=== PATIENT | male | born 1960 | race Caucasian/White ===

== ENCOUNTER 2023-05-15 16:26 | Inpatient (IN) | payer BC ==
[~2023-05-15] VITALS: Ht 165.1 cm; Wt 60.6 kg
[2023-05-15 18:28] LABS: BASOPHILS # (AUTO) 0.2 X10'3 (0-0.2); EOSINOPHILS % (AUTO) 0 % (0-6); HEMATOCRIT 45.8 % (42.0-52.0); HEMOGLOBIN 14.8 g/dl (14.0-17.9); LYMPHOCYTES # (AUTO) 1.2 X10'3 (1.1-4.8); LYMPHOCYTES % (AUTO) 5.4 % (21-51); MEAN CORPUSCULAR HEMOGLOBIN 32.6 PG (27.0-31.0); MEAN CORPUSCULAR HGB CONC 32.4 g/dL (33.0-36.5); MEAN CORPUSCULAR VOLUME 100.6 FL (78-98); MEAN PLATELET VOLUME 9.3 FL (7.4-10.4); MONOCYTES # (AUTO) 2.9 X10'3 (0-0.9); MONOCYTES % (AUTO) 13.2 % (2-12); NEUTROPHILS # (AUTO) 17.9 X10'3 (1.8-7.7); NEUTROPHILS % (AUTO) 80.4 % (42-75); PLATELET COUNT 261 X10'3 (140-440); RED BLOOD COUNT 4.55 X10'6 (4.70-6.10); WHITE BLOOD COUNT 22.2 X10'3 (4.5-11.0)
[2023-05-15 18:36] LABS: APTT 35 SECONDS (22-32); INR 1.1 INR; PROTHROMBIN TIME 11.3 SECONDS (9.0-12.0)
[2023-05-15] MEDS ORDERED: normal saline 1000ML IV soln IVB ONE (18:45)
[2023-05-15 18:49] LABS: ALANINE AMINOTRANSFERASE 20 U/L (12-78); ALBUMIN 3.2 G/DL (3.4-5.0); ALBUMIN/GLOBULIN RATIO 0.6 (1.1-1.5); ALKALINE PHOSPHATASE 117 IU/L (46-116); ANION GAP 30 (8-16); ASPARTATE AMINO TRANSFERASE 14 U/L (10-37); BILIRUBIN,TOTAL 0.6 MG/DL (0.1-1.0); BLOOD UREA NITROGEN 32 MG/DL (7-18); CALCIUM 9.8 MG/DL (8.5-10.1); CHLORIDE 90 MMOL/L (99-107); CREATININE 1.68 MG/DL (0.60-1.10); POTASSIUM 3.9 MMOL/L (3.5-5.1); PRO BRAIN NATRIURETIC PEPTIDE 267 PG/ML (0-125); SODIUM 129 MMOL/L (135-145); TOTAL PROTEIN 8.9 G/DL (6.4-8.2); eCRCL 39 ML/MIN; eGFR 41 ML/MIN
[2023-05-15 18:52] LABS: GLUCOSE 691 MG/DL (70-104)
[2023-05-15 19:04] LABS: ETHANOL < 10 MG/DL (<10)
[2023-05-15 19:32] LABS: PLATELET ESTIMATE NORMAL; TOTAL CELLS COUNTED 100
[2023-05-15 20:03] LABS: BILIRUBIN,URINE SMALL (Neg); CLARITY,URINE SLIGHTLY CLOUDY (Clear); COLOR,URINE STRAW (Yellow); GLUCOSE, URINE >=1000 mg/dl (Neg); KETONES,URINE >=80 mg/dl (Neg); LEUKOCYTE ESTERASE ,URINE NEGATIVE (Neg); NITRITES, URINE NEGATIVE (Neg); OCCULT BLOOD,URINE SMALL (Neg); PH,URINE 5.5 (4.8-8.0); PROTEIN,URINE 30 mg/dl (Neg); UROBILINOGEN,URINE 0.2 E.U/dL (0.2-1.0)
[2023-05-15 20:05] LABS: UA COLLECTION TYPE CLN CATCH MIDSTREAM
[2023-05-15 20:12] LABS: MUCUS STRANDS FEW /LPF (Neg); SQUAMOUS EPITHELIAL CELL,UR FEW /LPF (FEW)
[2023-05-15 20:14] LABS: AMORPHOUS URATES 2+; BACTERIA,URINE FEW /HPF (Neg); RBC,URINE 0-2 /HPF (0-2); WBC,URINE 0-4 /HPF (0-4)
[2023-05-15 20:15] LABS: HYALINE CASTS 0-3 /LPF (NEGATIVE)
[2023-05-15 20:20] LABS: URINE AMPHETAMINE SCREEN NEGATIVE (Neg); URINE BARBITUATE SCREEN NEGATIVE (Neg); URINE BENZODIAZEPINES SCREEN NEGATIVE (Neg); URINE CANNABINOID SCREEN NEGATIVE (Neg); URINE COCAINE SCREEN NEGATIVE (Neg); URINE METHADONE SCREEN NEGATIVE (Neg); URINE OPIATE SCREEN NEGATIVE (Neg); URINE PHENCYCLIDINE SCREEN NEGATIVE (Neg)
[2023-05-15] MEDS ORDERED: Insulin Reg/NS 100units/100mL 100 ML IV ONE (20:35)
[2023-05-15] MEDS ORDERED: sodium bicarbonate (8.4%) inj. 100 MEQ in dextrose 5% water 500ml 500 ML IV PRN ×2 (20:40→20:45)
[2023-05-15] MEDS ORDERED: sodium phosphate inj. 30 MMOL in dextrose 5%-water 250 ML IV PRN (20:40)
[2023-05-15] MEDS ORDERED: insulin regular, human U-100 3ml vial - multi-dose IV PRN ×3 (20:40→22:25)
[2023-05-15] MEDS ORDERED: sodium phosphate inj. 15 MMOL in dextrose 5%-water 250 ML IV PRN (20:40)
[2023-05-15] MEDS ORDERED: Insulin Reg/NS 100units/100mL 100 ML IV SCH ×3 (20:40→22:25)
[2023-05-15] MEDS ORDERED: potassium Cl 40MEQ/1/2NS 520ml 520 ML IV PRN ×6 (20:40→22:25)
[2023-05-15] MEDS ORDERED: potassium CL 20mEq in D5-1/2NS 1,000 ML IV PRN ×3 (20:40→22:25)
[2023-05-15] MEDS ORDERED: normal saline 1000ml 1,000 ML IV SCH ×4 (20:40→22:25)
[2023-05-15] MEDS ORDERED: potassium Cl 20 mEq SR tablet PO PRN ×8 (20:40→22:25)
[2023-05-15] MEDS ORDERED: sodium bicarbonate (8.4%) inj. 50 MEQ in dextrose 5% water 500ml 250 ML IV PRN ×2 (20:40→20:45)
[2023-05-15] MEDS ORDERED: Neutra Phos packet PO PRN (20:40)
[2023-05-15] MEDS: normal saline 1000ml 1,000 ML IV SCH ×2 (21:02→23:40)
[2023-05-15 21:52] LABS: ALBUMIN 2.8 G/DL (3.4-5.0); ANION GAP 31 (8-16); BLOOD UREA NITROGEN 28 MG/DL (7-18); BUN/CREATININE RATIO 19.6 (10.0-20.0); CALCIUM 9.1 MG/DL (8.5-10.1); CHLORIDE 97 MMOL/L (99-107); CREATININE 1.43 MG/DL (0.60-1.10); PHOSPHORUS 3.1 MG/DL (2.3-4.5); POTASSIUM 3.5 MMOL/L (3.5-5.1); SODIUM 135 MMOL/L (135-145); eCRCL 46 ML/MIN; eGFR 50 ML/MIN
[2023-05-15 22:05] LABS: GLUCOSE 514 MG/DL (70-104); TOTAL CARBON DIOXIDE 6.6 MMOL/L (24-32)
[2023-05-15] MEDS ORDERED: acetaminophen 325mg tablet PO PRN (22:20)
[2023-05-15] MEDS ORDERED: magnesium Cl slow-release 64mg tablet PO PRN (22:20)
[2023-05-15] MEDS ORDERED: magnesium 4gm in 100ml NS 100 ML IV PRN (22:20)
[2023-05-15] MEDS ORDERED: magnesium 2GM in 50ml NS 50 ML IV PRN (22:20)
[2023-05-15] MEDS ORDERED: mag hydrox/Alum hydrox/simeth 30ml oral suspension PO PRN (22:20)
[2023-05-15] MEDS ORDERED: magnesium hydroxide 30ml (MOM) UD suspension PO PRN (22:20)
[2023-05-15] MEDS ORDERED: CefTRIAXone/D5W-Rocephin 1gm 50 ML IV ONE (22:25)
[2023-05-15] MEDS: Insulin Reg/NS 100units/100mL 100 ML IV SCH (23:01)
[2023-05-15 23:05] LABS: ALBUMIN 2.8 G/DL (3.4-5.0); ANION GAP 29 (8-16); BLOOD UREA NITROGEN 27 MG/DL (7-18); BUN/CREATININE RATIO 19.7 (10.0-20.0); CALCIUM 8.9 MG/DL (8.5-10.1); CHLORIDE 100 MMOL/L (99-107); CREATININE 1.37 MG/DL (0.60-1.10); GLUCOSE 357 MG/DL (70-104); POTASSIUM 3.1 MMOL/L (3.5-5.1); SODIUM 137 MMOL/L (135-145); eCRCL 48 ML/MIN; eGFR 52 ML/MIN
[2023-05-15 23:40] VITALS: BP 122/82; PULSE 102; RESP 19; TEMP 98.4; O2SAT 98
[2023-05-16] VITALS (24 sets, daily range): BP systolic 94–128; BP diastolic 61–82; PULSE 96–130; RESP 16–31; TEMP 97.6–102.1; O2SAT 90–97
[2023-05-16] MEDS: normal saline 1000ml 1,000 ML IV SCH ×6 (00:26→23:53)
[2023-05-16] MEDS: potassium CL 20mEq in D5-1/2NS 1,000 ML IV PRN ×2 (01:29→14:45)
[2023-05-16] MEDS: potassium Cl 40MEQ/1/2NS 520ml 520 ML IV PRN ×6 (01:31→21:45)
[2023-05-16] MEDS ORDERED: diazepam inj 5 MG/ML inj. IV ONE (03:15)
[2023-05-16 03:17] LABS: BASOPHILS # (AUTO) 0.1 X10'3 (0-0.2); BASOPHILS % (AUTO) 0.9 % (0-1); EOSINOPHILS % (AUTO) 0.1 % (0-6); HEMATOCRIT 38.5 % (42.0-52.0); HEMOGLOBIN 12.8 g/dl (14.0-17.9); LYMPHOCYTES # (AUTO) 0.6 X10'3 (1.1-4.8); LYMPHOCYTES % (AUTO) 5.6 % (21-51); MEAN CORPUSCULAR HEMOGLOBIN 31.9 PG (27.0-31.0); MEAN CORPUSCULAR HGB CONC 33.3 g/dL (33.0-36.5); MEAN CORPUSCULAR VOLUME 95.8 FL (78-98); MEAN PLATELET VOLUME 8.8 FL (7.4-10.4); MONOCYTES # (AUTO) 0.8 X10'3 (0-0.9); MONOCYTES % (AUTO) 6.7 % (2-12); NEUTROPHILS % (AUTO) 86.7 % (42-75); PLATELET COUNT 222 X10'3 (140-440); RED BLOOD COUNT 4.02 X10'6 (4.70-6.10); RED CELL DISTRIBUTION WIDTH 12.7 % (11.5-14.5); WHITE BLOOD COUNT 11.5 X10'3 (4.5-11.0)
[2023-05-16 03:29] LABS: ALANINE AMINOTRANSFERASE 15 U/L (12-78); ALBUMIN 2.5 G/DL (3.4-5.0); ALBUMIN/GLOBULIN RATIO 0.6 (1.1-1.5); ALKALINE PHOSPHATASE 85 IU/L (46-116); ANION GAP 19 (8-16); ASPARTATE AMINO TRANSFERASE 14 U/L (10-37); BILIRUBIN,TOTAL 0.4 MG/DL (0.1-1.0); BLOOD UREA NITROGEN 24 MG/DL (7-18); BUN/CREATININE RATIO 19.4 (10.0-20.0); CALCIUM 8.6 MG/DL (8.5-10.1); CHLORIDE 106 MMOL/L (99-107); CREATININE 1.24 MG/DL (0.60-1.10); GLUCOSE 195 MG/DL (70-104); MAGNESIUM 1.7 MG/DL (1.5-2.4); SODIUM 137 MMOL/L (135-145); eCRCL 52 ML/MIN; eGFR 59 ML/MIN
[2023-05-16 03:45] LABS: PHOSPHORUS 0.9 MG/DL (2.3-4.5); POTASSIUM 2.5 MMOL/L (3.5-5.1); TOTAL CARBON DIOXIDE 12.2 MMOL/L (24-32)
[2023-05-16 04:44] LABS: PLATELET ESTIMATE NORMAL; TOTAL CELLS COUNTED 100
[2023-05-16 04:45] LABS: BURR CELLS 1+
[2023-05-16] MEDS ORDERED: sodium phosphate inj. 30 MMOL in dextrose 5%-water 250 ML IV PRN (07:10)
[2023-05-16] MEDS ORDERED: sodium phosphate inj. 15 MMOL in dextrose 5%-water 250 ML IV PRN (07:10)
[2023-05-16] MEDS: Insulin Reg/NS 100units/100mL 100 ML IV SCH (07:20)
[2023-05-16] MEDS: heparin, porcine 5000 units/ml vial SQ SCH ×2 (08:00→20:39)
[2023-05-16] MEDS: docusate sod 100mg capsule PO SCH ×2 (08:00→20:39)
[2023-05-16] MEDS: CefTRIAXone/D5W-Rocephin 1gm 50 ML IV SCH (08:00)
[2023-05-16] MEDS ORDERED: K and/or MAG REPLACEMENT MC SCH ×3 (08:00)
[2023-05-16] MEDS: K and/or MAG REPLACEMENT MC SCH ×2 (08:37→20:00)
[2023-05-16] MEDS ORDERED: ringers solution, lacted 1,000 ML IV ONE ×2 (08:50)
[2023-05-16] MEDS ORDERED: METF-438 PO (09:44)
[2023-05-16 11:05] LABS: ANION GAP 12 (8-16); BLOOD UREA NITROGEN 16 MG/DL (7-18); BUN/CREATININE RATIO 17.6 (10.0-20.0); CALCIUM 8.2 MG/DL (8.5-10.1); CHLORIDE 108 MMOL/L (99-107); CREATININE 0.91 MG/DL (0.60-1.10); GLUCOSE 157 MG/DL (70-104); SODIUM 138 MMOL/L (135-145); TOTAL CARBON DIOXIDE 17.9 MMOL/L (24-32); eCRCL 71 ML/MIN; eGFR 84 ML/MIN
[2023-05-16 11:06] LABS: POTASSIUM 2.5 MMOL/L (3.5-5.1)
[2023-05-16] MEDS: ondansetron/PF 4mg/2ml inj IV PRN (12:52)
[2023-05-16 17:08] LABS: ALANINE AMINOTRANSFERASE 21 U/L (12-78); ALBUMIN 1.7 G/DL (3.4-5.0); ALBUMIN/GLOBULIN RATIO 0.4 (1.1-1.5); ALKALINE PHOSPHATASE 68 IU/L (46-116); ANION GAP 10 (8-16); ASPARTATE AMINO TRANSFERASE 35 U/L (10-37); BILIRUBIN,TOTAL 0.2 MG/DL (0.1-1.0); BLOOD UREA NITROGEN 9 MG/DL (7-18); BUN/CREATININE RATIO 12.9 (10.0-20.0); CALCIUM 7.6 MG/DL (8.5-10.1); CHLORIDE 107 MMOL/L (99-107); GLUCOSE 106 MG/DL (70-104); SODIUM 137 MMOL/L (135-145); TOTAL CARBON DIOXIDE 19.7 MMOL/L (24-32); TOTAL PROTEIN 5.6 G/DL (6.4-8.2); eCRCL 93 ML/MIN; eGFR > 90 ML/MIN
[2023-05-16 17:19] LABS: POTASSIUM 2.4 MMOL/L (3.5-5.1)
[2023-05-16 18:39] LABS: PHOSPHORUS 1.7 MG/DL (2.3-4.5)
[2023-05-16] MEDS ORDERED: insulin glargine (Lantus) pen - multi-dose SQ SCH ×2 (21:00)
[2023-05-16 22:25] LABS: ALANINE AMINOTRANSFERASE 23 U/L (12-78); ALBUMIN 1.7 G/DL (3.4-5.0); ALBUMIN/GLOBULIN RATIO 0.4 (1.1-1.5); ALKALINE PHOSPHATASE 70 IU/L (46-116); ANION GAP 14 (8-16); ASPARTATE AMINO TRANSFERASE 33 U/L (10-37); BILIRUBIN,TOTAL 0.4 MG/DL (0.1-1.0); BLOOD UREA NITROGEN 10 MG/DL (7-18); BUN/CREATININE RATIO 14.5 (10.0-20.0); CALCIUM 7.6 MG/DL (8.5-10.1); CHLORIDE 103 MMOL/L (99-107); CREATININE 0.69 MG/DL (0.60-1.10); GLUCOSE 266 MG/DL (70-104); POTASSIUM 3.3 MMOL/L (3.5-5.1); SODIUM 133 MMOL/L (135-145); TOTAL CARBON DIOXIDE 15.6 MMOL/L (24-32); TOTAL PROTEIN 5.6 G/DL (6.4-8.2); eCRCL 94 ML/MIN; eGFR > 90 ML/MIN
[2023-05-17] VITALS (23 sets, daily range): BP systolic 102–144; BP diastolic 68–84; PULSE 82–98; RESP 18–29; TEMP 99.9–100.3; O2SAT 93–98
[2023-05-17 05:54] LABS: BASOPHILS # (AUTO) 0.1 X10'3 (0-0.2); BASOPHILS % (AUTO) 0.5 % (0-1); EOSINOPHILS % (AUTO) 0 % (0-6); HEMATOCRIT 39.1 % (42.0-52.0); HEMOGLOBIN 12.9 g/dl (14.0-17.9); LYMPHOCYTES # (AUTO) 0.9 X10'3 (1.1-4.8); LYMPHOCYTES % (AUTO) 5.7 % (21-51); MEAN CORPUSCULAR HEMOGLOBIN 31.8 PG (27.0-31.0); MEAN CORPUSCULAR VOLUME 96.4 FL (78-98); MEAN PLATELET VOLUME 9.5 FL (7.4-10.4); MONOCYTES # (AUTO) 1.4 X10'3 (0-0.9); MONOCYTES % (AUTO) 9.1 % (2-12); NEUTROPHILS # (AUTO) 12.8 X10'3 (1.8-7.7); NEUTROPHILS % (AUTO) 84.7 % (42-75); PLATELET COUNT 201 X10'3 (140-440); RED BLOOD COUNT 4.06 X10'6 (4.70-6.10); RED CELL DISTRIBUTION WIDTH 12.9 % (11.5-14.5); WHITE BLOOD COUNT 15.2 X10'3 (4.5-11.0)
[2023-05-17 06:10] LABS: ALANINE AMINOTRANSFERASE 21 U/L (12-78); ALBUMIN 1.7 G/DL (3.4-5.0); ALBUMIN/GLOBULIN RATIO 0.4 (1.1-1.5); ALKALINE PHOSPHATASE 77 IU/L (46-116); ANION GAP 21 (8-16); ASPARTATE AMINO TRANSFERASE 28 U/L (10-37); BILIRUBIN,TOTAL 0.5 MG/DL (0.1-1.0); BLOOD UREA NITROGEN 10 MG/DL (7-18); BUN/CREATININE RATIO 16.7 (10.0-20.0); CALCIUM 7.9 MG/DL (8.5-10.1); CHLORIDE 104 MMOL/L (99-107); GLUCOSE 254 MG/DL (70-104); MAGNESIUM 1.7 MG/DL (1.5-2.4); POTASSIUM 3.4 MMOL/L (3.5-5.1); SODIUM 137 MMOL/L (135-145); TOTAL PROTEIN 5.8 G/DL (6.4-8.2); eCRCL 108 ML/MIN; eGFR > 90 ML/MIN
[2023-05-17 06:17] LABS: TOTAL CARBON DIOXIDE 12.5 MMOL/L (24-32)
[2023-05-17] MEDS ORDERED: ringers solution, lactated 500ml IV solution IV ONE (06:40)
[2023-05-17] MEDS: Insulin Reg/NS 100units/100mL 100 ML IV SCH ×2 (07:25→15:15)
[2023-05-17] MEDS: K and/or MAG REPLACEMENT MC SCH ×2 (08:00→20:00)
[2023-05-17] MEDS: CefTRIAXone/D5W-Rocephin 1gm 50 ML IV SCH (09:08)
[2023-05-17] MEDS: heparin, porcine 5000 units/ml vial SQ SCH ×2 (09:08→20:57)
[2023-05-17 09:18] LABS: PHOSPHORUS 2.1 MG/DL (2.3-4.5)
[2023-05-17] MEDS: docusate sod 100mg capsule PO SCH ×2 (09:22→20:57)
[2023-05-17] MEDS ORDERED: sodium phosphate inj. 15 MMOL in dextrose 5%-water 250 ML IV PRN (09:55)
[2023-05-17] MEDS: pantoprazole 40MG/NS 100ML BAG 100 ML IV SCH (10:33)
[2023-05-17] MEDS: normal saline 1000ml 1,000 ML IV SCH ×2 (10:54→19:33)
[2023-05-17 11:31] LABS: ALANINE AMINOTRANSFERASE 20 U/L (12-78); ALBUMIN 1.7 G/DL (3.4-5.0); ALBUMIN/GLOBULIN RATIO 0.4 (1.1-1.5); ALKALINE PHOSPHATASE 74 IU/L (46-116); ANION GAP 17 (8-16); ASPARTATE AMINO TRANSFERASE 16 U/L (10-37); BILIRUBIN,TOTAL 0.5 MG/DL (0.1-1.0); BLOOD UREA NITROGEN 10 MG/DL (7-18); BUN/CREATININE RATIO 16.7 (10.0-20.0); CALCIUM 7.8 MG/DL (8.5-10.1); CHLORIDE 105 MMOL/L (99-107); GLUCOSE 208 MG/DL (70-104); SODIUM 138 MMOL/L (135-145); TOTAL CARBON DIOXIDE 16.1 MMOL/L (24-32); TOTAL PROTEIN 5.5 G/DL (6.4-8.2); eCRCL 108 ML/MIN; eGFR > 90 ML/MIN
[2023-05-17 11:33] LABS: POTASSIUM 2.7 MMOL/L (3.5-5.1)
[2023-05-17] MEDS: potassium Cl 40MEQ/1/2NS 520ml 520 ML IV PRN ×3 (12:03→23:05)
[2023-05-17] MEDS ORDERED: ringers solution, lacted 1,000 ML IV ONE (13:45)
[2023-05-17] MEDS: potassium Cl 20mEq in D5-NS 1,000 ML IV SCH ×3 (14:51→23:05)
[2023-05-17] MEDS: ondansetron/PF 4mg/2ml inj IV PRN (17:30)
[2023-05-17 17:41] LABS: ALANINE AMINOTRANSFERASE 18 U/L (12-78); ALBUMIN 1.4 G/DL (3.4-5.0); ALBUMIN/GLOBULIN RATIO 0.4 (1.1-1.5); ALKALINE PHOSPHATASE 60 IU/L (46-116); ANION GAP 9 (8-16); ASPARTATE AMINO TRANSFERASE 25 U/L (10-37); BILIRUBIN,TOTAL 0.4 MG/DL (0.1-1.0); BLOOD UREA NITROGEN 10 MG/DL (7-18); BUN/CREATININE RATIO 16.4 (10.0-20.0); CALCIUM 7.4 MG/DL (8.5-10.1); CHLORIDE 108 MMOL/L (99-107); CREATININE 0.61 MG/DL (0.60-1.10); GLUCOSE 266 MG/DL (70-104); POTASSIUM 3.4 MMOL/L (3.5-5.1); SODIUM 138 MMOL/L (135-145); TOTAL CARBON DIOXIDE 21.4 MMOL/L (24-32); eCRCL 106 ML/MIN; eGFR > 90 ML/MIN
[2023-05-17 22:33] LABS: ALANINE AMINOTRANSFERASE 19 U/L (12-78); ALBUMIN 1.5 G/DL (3.4-5.0); ALBUMIN/GLOBULIN RATIO 0.4 (1.1-1.5); ALKALINE PHOSPHATASE 70 IU/L (46-116); ANION GAP 13 (8-16); ASPARTATE AMINO TRANSFERASE 18 U/L (10-37); BILIRUBIN,TOTAL 0.5 MG/DL (0.1-1.0); BLOOD UREA NITROGEN 9 MG/DL (7-18); CALCIUM 7.5 MG/DL (8.5-10.1); CHLORIDE 105 MMOL/L (99-107); CREATININE 0.45 MG/DL (0.60-1.10); GLUCOSE 202 MG/DL (70-104); POTASSIUM 3.3 MMOL/L (3.5-5.1); SODIUM 135 MMOL/L (135-145); TOTAL CARBON DIOXIDE 16.6 MMOL/L (24-32); TOTAL PROTEIN 5.1 G/DL (6.4-8.2); eCRCL 144 ML/MIN; eGFR > 90 ML/MIN
[2023-05-18] VITALS (14 sets, daily range): BP systolic 104–159; BP diastolic 71–87; PULSE 81–94; RESP 16–24; TEMP 98.1; O2SAT 93–100
[2023-05-18] MEDS: normal saline 1000ml 1,000 ML IV SCH ×2 (05:33→11:29)
[2023-05-18] MEDS: potassium Cl 20mEq in D5-NS 1,000 ML IV SCH (05:41)
[2023-05-18 06:39] LABS: ALANINE AMINOTRANSFERASE 17 U/L (12-78); ALBUMIN 1.4 G/DL (3.4-5.0); ALBUMIN/GLOBULIN RATIO 0.4 (1.1-1.5); ALKALINE PHOSPHATASE 67 IU/L (46-116); ANION GAP 6 (8-16); ASPARTATE AMINO TRANSFERASE 20 U/L (10-37); BILIRUBIN,TOTAL 0.5 MG/DL (0.1-1.0); BLOOD UREA NITROGEN 8 MG/DL (7-18); BUN/CREATININE RATIO 15.7 (10.0-20.0); CALCIUM 7.5 MG/DL (8.5-10.1); CHLORIDE 108 MMOL/L (99-107); CREATININE 0.51 MG/DL (0.60-1.10); GLUCOSE 178 MG/DL (70-104); MAGNESIUM 1.6 MG/DL (1.5-2.4); SODIUM 138 MMOL/L (135-145); TOTAL CARBON DIOXIDE 24.1 MMOL/L (24-32); eCRCL 127 ML/MIN; eGFR > 90 ML/MIN
[2023-05-18] MEDS ORDERED: ringers solution, lacted 1,000 ML IV ONE ×2 (06:40)
[2023-05-18 06:43] LABS: BASOPHILS # (AUTO) 0.1 X10'3 (0-0.2); BASOPHILS % (AUTO) 1.1 % (0-1); EOSINOPHILS % (AUTO) 0 % (0-6); HEMATOCRIT 33.4 % (42.0-52.0); HEMOGLOBIN 11.5 g/dl (14.0-17.9); LYMPHOCYTES # (AUTO) 1.3 X10'3 (1.1-4.8); LYMPHOCYTES % (AUTO) 11.5 % (21-51); MEAN CORPUSCULAR HEMOGLOBIN 32.2 PG (27.0-31.0); MEAN CORPUSCULAR HGB CONC 34.5 g/dL (33.0-36.5); MEAN CORPUSCULAR VOLUME 93.1 FL (78-98); MEAN PLATELET VOLUME 8.9 FL (7.4-10.4); MONOCYTES # (AUTO) 0.7 X10'3 (0-0.9); MONOCYTES % (AUTO) 6.3 % (2-12); NEUTROPHILS # (AUTO) 8.9 X10'3 (1.8-7.7); NEUTROPHILS % (AUTO) 81.1 % (42-75); PLATELET COUNT 197 X10'3 (140-440); RED BLOOD COUNT 3.59 X10'6 (4.70-6.10)
[2023-05-18] MEDS ORDERED: normal saline 1000ml 1,000 ML IV SCH (07:30)
[2023-05-18] MEDS: insulin glargine (Lantus) pen - multi-dose SQ SCH ×2 (07:38→20:22)
[2023-05-18] MEDS: K and/or MAG REPLACEMENT MC SCH ×2 (08:00→20:00)
[2023-05-18] MEDS: pantoprazole 40MG/NS 100ML BAG 100 ML IV SCH (08:02)
[2023-05-18] MEDS: ondansetron/PF 4mg/2ml inj IV PRN (08:07)
[2023-05-18] MEDS: heparin, porcine 5000 units/ml vial SQ SCH ×2 (09:25→20:05)
[2023-05-18] MEDS: docusate sod 100mg capsule PO SCH ×2 (09:25→20:05)
[2023-05-18] MEDS: CefTRIAXone/D5W-Rocephin 1gm 50 ML IV SCH (09:25)
[2023-05-18] MEDS: potassium Cl 40MEQ/1/2NS 520ml 520 ML IV PRN ×2 (09:37→13:45)
[2023-05-18] MEDS ORDERED: FLU VACC QS2023-24(6MOS UP)/PF 60 MCG/0.5 ML SYRINGE IM ONE (13:35)
[2023-05-18] MEDS ORDERED: pneumococcal 23-VAL P-sac vacc 25 mcg/0.5ml vial IMVAC ONE (13:35)
[2023-05-18] MEDS: insulin Lispro (HumaLOG) vial - multi-dose SQ SCH ×3 (13:50→20:24)
[2023-05-18 14:36] LABS: ALANINE AMINOTRANSFERASE 18 U/L (12-78); ALBUMIN 1.7 G/DL (3.4-5.0); ALBUMIN/GLOBULIN RATIO 0.4 (1.1-1.5); ALKALINE PHOSPHATASE 80 IU/L (46-116); ANION GAP 10 (8-16); ASPARTATE AMINO TRANSFERASE 16 U/L (10-37); BILIRUBIN,TOTAL 0.6 MG/DL (0.1-1.0); BLOOD UREA NITROGEN 10 MG/DL (7-18); BUN/CREATININE RATIO 21.3 (10.0-20.0); CALCIUM 7.9 MG/DL (8.5-10.1); CHLORIDE 102 MMOL/L (99-107); CREATININE 0.47 MG/DL (0.60-1.10); GLUCOSE 209 MG/DL (70-104); PHOSPHORUS 1.6 MG/DL (2.3-4.5); POTASSIUM 3.4 MMOL/L (3.5-5.1); SODIUM 137 MMOL/L (135-145); TOTAL PROTEIN 5.7 G/DL (6.4-8.2); eCRCL 138 ML/MIN; eGFR > 90 ML/MIN
[2023-05-18 14:38] LABS: ALANINE AMINOTRANSFERASE 8 U/L (12-78); ALBUMIN 1.6 G/DL (3.4-5.0); ALBUMIN/GLOBULIN RATIO 0.4 (1.1-1.5); ALKALINE PHOSPHATASE 101 IU/L (46-116); ANION GAP 10 (8-16); ASPARTATE AMINO TRANSFERASE 15 U/L (10-37); BILIRUBIN,TOTAL 0.5 MG/DL (0.1-1.0); BLOOD UREA NITROGEN 9 MG/DL (7-18); BUN/CREATININE RATIO 21.4 (10.0-20.0); CALCIUM 7.6 MG/DL (8.5-10.1); CHLORIDE 103 MMOL/L (99-107); CREATININE 0.42 MG/DL (0.60-1.10); GLUCOSE 206 MG/DL (70-104); POTASSIUM 3.3 MMOL/L (3.5-5.1); SODIUM 138 MMOL/L (135-145); TOTAL CARBON DIOXIDE 24.8 MMOL/L (24-32); TOTAL PROTEIN 5.5 G/DL (6.4-8.2); eCRCL 154 ML/MIN; eGFR > 90 ML/MIN
[2023-05-19] VITALS: BP 123/82; PULSE 84; RESP 15; TEMP 98.9; O2SAT 96
[2023-05-19 00:57] LABS: ALANINE AMINOTRANSFERASE 14 U/L (12-78); ALBUMIN 1.5 G/DL (3.4-5.0); ALBUMIN/GLOBULIN RATIO 0.4 (1.1-1.5); ALKALINE PHOSPHATASE 72 IU/L (46-116); ANION GAP 10 (8-16); ASPARTATE AMINO TRANSFERASE 12 U/L (10-37); BILIRUBIN,TOTAL 0.6 MG/DL (0.1-1.0); BLOOD UREA NITROGEN 7 MG/DL (7-18); BUN/CREATININE RATIO 18.4 (10.0-20.0); CALCIUM 7.6 MG/DL (8.5-10.1); CHLORIDE 105 MMOL/L (99-107); CREATININE 0.38 MG/DL (0.60-1.10); GLUCOSE 114 MG/DL (70-104); MAGNESIUM 1.6 MG/DL (1.5-2.4); PHOSPHORUS 1.7 MG/DL (2.3-4.5); SODIUM 140 MMOL/L (135-145); TOTAL CARBON DIOXIDE 24.6 MMOL/L (24-32); TOTAL PROTEIN 4.9 G/DL (6.4-8.2); eCRCL 171 ML/MIN; eGFR > 90 ML/MIN
[2023-05-19 01:04] LABS: POTASSIUM 2.6 MMOL/L (3.5-5.1)
[2023-05-19] MEDS ORDERED: magnesium 2GM in 50ml NS 50 ML IV PRN (01:10)
[2023-05-19] MEDS ORDERED: potassium Cl 20 mEq SR tablet PO PRN (01:10)
[2023-05-19] MEDS ORDERED: magnesium Cl slow-release 64mg tablet PO PRN (01:10)
[2023-05-19] MEDS ORDERED: magnesium 4gm in 100ml NS 100 ML IV PRN (01:10)
[2023-05-19] MEDS: potassium Cl 40MEQ/1/2NS 520ml 520 ML IV PRN ×2 (01:44→05:55)
[2023-05-19 04:00] VITALS: BP 116/73; PULSE 85; RESP 24; TEMP 98; O2SAT 92
[2023-05-19 06:00] VITALS: BP 119/76; PULSE 85; RESP 15; TEMP 97.3; O2SAT 96
[2023-05-19 07:19] LABS: BASOPHILS # (AUTO) 0.1 X10'3 (0-0.2); BASOPHILS % (AUTO) 0.7 % (0-1); EOSINOPHILS % (AUTO) 0.4 % (0-6); HEMATOCRIT 31.3 % (42.0-52.0); HEMOGLOBIN 10.8 g/dl (14.0-17.9); LYMPHOCYTES # (AUTO) 1.2 X10'3 (1.1-4.8); LYMPHOCYTES % (AUTO) 14.4 % (21-51); MEAN CORPUSCULAR HEMOGLOBIN 32.1 PG (27.0-31.0); MEAN CORPUSCULAR HGB CONC 34.4 g/dL (33.0-36.5); MEAN CORPUSCULAR VOLUME 93.3 FL (78-98); MEAN PLATELET VOLUME 8.3 FL (7.4-10.4); MONOCYTES # (AUTO) 0.8 X10'3 (0-0.9); MONOCYTES % (AUTO) 9.7 % (2-12); NEUTROPHILS # (AUTO) 6.5 X10'3 (1.8-7.7); NEUTROPHILS % (AUTO) 74.8 % (42-75); PLATELET COUNT 217 X10'3 (140-440); RED BLOOD COUNT 3.36 X10'6 (4.70-6.10); RED CELL DISTRIBUTION WIDTH 12.6 % (11.5-14.5); WHITE BLOOD COUNT 8.7 X10'3 (4.5-11.0)
[2023-05-19] MEDS: K and/or MAG REPLACEMENT MC SCH (07:30)
[2023-05-19 07:34] LABS: PHOSPHORUS 2.3 MG/DL (2.3-4.5); POTASSIUM 3.1 MMOL/L (3.5-5.1)
[2023-05-19 08:20] VITALS: RESP 15; O2SAT 96
[2023-05-19] MEDS: insulin Lispro (HumaLOG) vial - multi-dose SQ SCH ×2 (09:11→14:00)
[2023-05-19] MEDS: heparin, porcine 5000 units/ml vial SQ SCH (09:12)
[2023-05-19] MEDS: pantoprazole 40MG/NS 100ML BAG 100 ML IV SCH (09:13)
[2023-05-19] MEDS: docusate sod 100mg capsule PO SCH (09:15)
[2023-05-19] MEDS: insulin glargine (Lantus) pen - multi-dose SQ SCH (09:25)
[2023-05-19] MEDS: CefTRIAXone/D5W-Rocephin 1gm 50 ML IV SCH (09:29)
[2023-05-19 11:00] VITALS: BP 117/76; PULSE 101; RESP 18; TEMP 97.8; O2SAT 95
[2023-05-19] MEDS ORDERED: potassium Cl 20 mEq SR tablet PO STA (11:52)
[2023-05-19 15:13] VITALS: BP 136/86; PULSE 82; RESP 21; TEMP 98.6; O2SAT 96
[2023-05-19] MEDS ORDERED: LANTUS SQ (15:31)
[2023-05-19] MEDS ORDERED: INSU100V11 SQ (15:31)
== END 2023-05-19 17:05 | disposition home or self-care (01) | DRG 637 ==
LOC: ER 16:26 → ED HOLD 22:22 → CICU 2S 23:38 → PCU 3S 05-18 12:22
PROVIDERS: ADMIT Internal Medicine; ATTEND Family Medicine
DX: E10.10 Type 1 diabetes mellitus with ketoacidosis without coma (principal); G93.41 Metabolic encephalopathy; N17.0 Acute kidney failure with tubular necrosis; N39.0 Urinary tract infection, site not specified; E46 Unspecified protein-calorie malnutrition; J98.11 Atelectasis; E86.0 Dehydration; E87.6 Hypokalemia; E83.39 Other disorders of phosphorus metabolism; Z68.22 Body mass index [BMI] 22.0-22.9, adult
CPT/HCPCS: 36415; 70450; 71045; 80048; 80053; 80305; 80320; 81001; 82948; 83036; 83605; 83735; 83880; 84100; 84132; 84484; 85007; 85025; 85610; 85730; 86885; 86900; 86901; 87081; 90686; 90732; 97161; 97530; 99285; A4615; A5200; A6213; A6449; C1758; C9113; G0378; J0696; J1644; J1815; J2405; J3360; J3480; J3490; J7030; J7040; J7060; J7120